=== PATIENT | male | born 1985 | race Caucasian/White ===

== ENCOUNTER 2016-12-20 14:46 | Emergency (ER) | payer OTHER ==
--- NOTE | 2016-12-20 15:05 | Emergency Department Record ---
History of Present Illness - General Chief Complaint: Alcohol Intoxication Stated Complaint: ETOH Time Seen by Provider: 12/20/16 14:57 Source: Patient Mode of Arrival: EMS Limitations: No limitations - History of Present Illness Initial Comments: The patient is here by EMS due to being found intoxicated. He reportedly expressed suicidal ideation at home to his after being found very intoxicated. The patient now states he is clearly NOT suicidal and was just acting out to his to get attention. The patient has no plan for suicide and has not been depressed recently. He has had some issues recently with PTSD and has been drinking heavily. The patient denies any illnesses or injuries. The patient is very calm and cooperative at this time. MD Complaint: Alcohol intoxication Last Drink: Unknown Chronic Alcohol Use: No Previous Visits for Alcohol Intoxication?: No Recent Trauma: No Associated Symptoms: Denies other symptoms Treatments Prior to Arrival: None - Tato Coma Scale Eye Response: (4) Open spontaneously Motor Response: (6) Obeys commands Verbal Response: (5) Oriented Tato Total: 15 - Related Data Home Medications Medication Instructions Recorded Confirmed Last Taken Unobtainable [Unobtainable] 12/20/16 12/20/16 Unknown Allergies Allergy/AdvReac Type Severity Reaction Status Date / Time No Known Drug Allergies Allergy Verified 12/20/16 14:58 Travel Screening - Travel/Exposure Within Last 30 Days Have you traveled within the last 30 days?: No Review of Systems Constitutional: Denies: Chills, Fever Eyes: Denies: Eye discharge ENT: Denies: Congestion Respiratory: Denies: Cough, Dyspnea Past Medical History - SOCIAL HISTORY Smoking Status: Never smoker Alcohol Use: Rare Drug Use: None - RESPIRATORY Hx Respiratory Disorders: No - CARDIOVASCULAR Hx Cardio Disorders: No - NEURO Hx Neuro Disorders: No - GI Hx GI Disorders: No - Hx Genitourinary Disorders: No - ENDOCRINE Hx Endocrine Disorders: No - MUSCULOSKELETAL Hx Musculoskeletal Disorders: No - PSYCH Hx Psych Problems: Yes Hx Anxiety: Yes Hx Depression: Yes Comment:: PTSD - HEMATOLOGY/ONCOLOGY Hx Hematology/Oncology Disorders: No Family Medical History Any Significant Family History?: No Physical Exam - General General Appearance: Alert, Oriented x3, Cooperative, No acute distress - Head Head exam: Atraumatic, Normocephalic, Normal inspection - Eye Eye exam: Normal appearance, PERRL, EOMI - ENT Throat exam: Normal inspection. negative: Tonsillar erythema, Tonsillar exudate - Neck Neck exam: Normal inspection, Full ROM. negative: Tenderness - Respiratory Respiratory exam: Normal lung sounds bilaterally. negative: Respiratory distress - Cardiovascular Cardiovascular Exam: Regular rate, Normal rhythm, Normal heart sounds - GI/Abdominal GI/Abdominal exam: Soft, Normal bowel sounds. negative: Tenderness - Extremities Extremities exam: Normal inspection, Full ROM, Normal capillary refill. negative: Tenderness - Neurological Neurological exam: Alert, Normal gait (Neg ataxia. The patient is ambulating normally.), Other (The patient's speech is clear with no slurring or stuttering. ). negative: Abnormal gait, Motor sensory deficit Course Vital Signs 12/20/16 14:50 Temperature 97.9 F Pulse Rate 92 H Respiratory 16 Rate Blood Pressure 123/67 Pulse Ox 94 L - Reevaluation(s) Reevaluation #1: The patient eloped from the ED when no one was watching. He had been very calm and cooperative during his brief stay in the ER. The patient was with his when he eloped. We did contact the police to find and return to the patient to the ER. 12/20/16 15:25 12/20/16 16:06 Medical Decision Making - Lab Data Result diagrams: 12/20/16 15:21 12/20/16 15:21 Disposition Disposition: Against Medical Advice Forms: Patient Portal Access Quality - Quality Measures Quality Measures: N/A - Blood Pressure Screening View Details: Yes Does Patient Have Any of the Following: No Blood Pressure Classification: Pre-Hypertensive BP Reading Systolic Measurement: 123 Diastolic Measurement: 67 Screening for High Blood Pressure: < Pre-Hypertensive BP, F/U Documented > [ [id number]] Pre-Hypertensive Follow-up Interventions: Referral to alternative/primary care provider.
[2016-12-20 15:17] LABS: AMPHETAMINE SCREEN URINE NOT DETECTED; BARBITURATE SCREEN URINE NOT DETECTED; BENZODIAZEPINE SCREEN URINE NOT DETECTED; COCAINE SCREEN URINE NOT DETECTED; METHADONE SCREEN URINE NOT DETECTED; METHAMPHETAMINE SCREEN NOT DETECTED; OPIATE SCREEN URINE NOT DETECTED; OXYCODONE SCREEN URINE NOT DETECTED; PHENCYCLIDINE SCREEN URINE NOT DETECTED; PROPOXYPHENE SCREEN URINE NOT DETECTED; THC SCREEN URINE NOT DETECTED; TRICYCLIC ANTIDEPRESSANT SCRN NOT DETECTED
[2016-12-20 15:25] LABS: BASO % 0.1 % (0-6); EOS % 0.6 % (0-6); GRAN % 68.7 % (47-80); HEMATOCRIT 44.4 % (42.0-52.0); HEMOGLOBIN 16.1 gm/dl (14.0-18.0); LYMPH % 22.5 % (16-45); MEAN CELL VOLUME 91.5 fl (81-97); MEAN CORPUSCULAR HEMOGLOBIN 33.2 pg (27-33); MEAN CORPUSCULAR HGB CONC 36.3 g/dl (32-36); MEAN PLATELET VOLUME 8.9 fl (7.4-10.4); MONO % 8.1 % (0-9); PLATELET COUNT 279 K/uL (130-400); RED BLOOD COUNT 4.85 M/uL (4.40-5.70); RED CELL DISTRIBUTION WIDTH 13.6 % (11.5-14.5); WHITE BLOOD COUNT W/O DIFF 7.1 K/uL (4.2-12.2)
[2016-12-20 15:29] LABS: ACETAMINOPHEN < 5.0 ug/mL (10.0-30.0); ALCOHOL 0.367 g/dL (0-0.010); SALICYLATE < 0.3 mg/dL (2.8-20)
[2016-12-20 15:41] LABS: ALB/GLOB RATIO 1.8 (1.1-1.8); ALBUMIN 4.6 g/dL (4.0-5.0); ALKALINE PHOSPHATASE 76 U/L (40-129); ALT/SGPT 52 U/L (<41); AST/SGOT 32 U/L (10.0-50.0); BLOOD UREA NITROGEN 9 mg/dL (6-20); CREATININE 0.8 mg/dL (0.7-1.2); EST GLOMERULAR FILTRATION RATE > 60 mL/min; GLUCOSE,RANDOM 98 mg/dL (74-109); TOTAL PROTEIN 7.1 g/dL (6.6-8.7)
== END 2016-12-20 15:30 | disposition left against medical advice (07) ==
LOC: ER 14:46
DX: F10.129 Alcohol abuse with intoxication, unspecified (principal); Y90.8 Blood alcohol level of 240 mg/100 ml or more; F43.10 Post-traumatic stress disorder, unspecified
CPT/HCPCS: 99283 ×2; 85025; 80053; 80305; G0480 ×3; 80320; 80329